=== PATIENT | male | born 1980 | race Caucasian/White ===

== ENCOUNTER 2019-10-07 21:12 | Emergency (ER) | payer OTHER, SELFPAY ==
[2019-10-07 21:21] VITALS: BP 126/67; PULSE 82; RESP 20; TEMP 36.6; O2SAT 100
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
[2019-10-07 21:35] VITALS: BP 118/61; PULSE 68; RESP 18; O2SAT 99
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
[2019-10-07 22:48] VITALS: BP 116/59; PULSE 64; RESP 18; O2SAT 98
[2019-10-08] MEDS: HYDROCODONE/ACET 5/325 PREPACK 1 BOTTLE MISC (01:05)
[2019-10-08] MEDS: AMOXICILLIN/CLAV 875/125 MG 1 TAB PO (01:05)
[2019-10-08 01:12] VITALS: BP 120/65; PULSE 68; RESP 18; O2SAT 99
--- NOTE | 2019-10-08 01:14 | PC.NURSE ---
DR Dawn sutured his lip lac and cleaned the area first,he refused and cleaning on his other extremity abrasions.
== END 2019-10-08 01:10 | disposition home or self-care (01) ==
PROVIDERS: Emergency Provider Emergency Medicine
DX: S01.81XA Laceration without foreign body of other part of head, initial encounter (principal); S09.12XA Laceration of muscle and tendon of head, initial encounter; Y93.55 Activity, bike riding
CPT/HCPCS: 12051; 64450; 70450; 70486; 99283; 99284

== ENCOUNTER → 2025-05-19 11:24 | Outpatient (CLI) | payer OTHER, SELFPAY ==
[2025-05-19 14:03] LABS: Urine N gonorrhoeae NOT DETECTED
[2025-05-19 14:04] LABS: Urine Chlamydia NOT DETECTED
[2025-05-20 15:38] LABS: HIV 1 & 2 Ab/Ag 4th Gen Combo NEGATIVE (NEGATIVE); Hep C Virus Ab w/Reflex Quant NEGATIVE s/c (NEGATIVE)
== END ==
PROVIDERS: Referring Provider Chiropractor; Visit Provider Chiropractor
DX: Z11.3 Encounter for screening for infections with a predominantly sexual mode of transmission (principal)
CPT/HCPCS: 36415; 86592; 86803; 87350; 87389; 87491; 87591